=== PATIENT | male | born 1995 | race Caucasian/White ===

== ENCOUNTER 2017-12-25 15:29 | Emergency (ER) | payer SELFPAY ==
[2017-12-25 15:30] VITALS: BP 119/98; PULSE 125; RESP 16; TEMP 36.9; O2SAT 99; BMI 23.8
--- NOTE | 2017-12-25 15:46 | ED.VISSUMM ---
- ER Visit Summary Date of Service: 12/25/17 Chief Complaint: Dental pain left-sided jaw and facial swelling that started yesterday History of Present Illness: The patient is a 22 M who presents with left-sided facial pain and swelling that he localizes to the mandible. He denies fever, chills or night sweats. He denies history rheumatic fever, MVP, SBE, IV drug use or be an immune suppressed. He states he was told he has a murmur. He denies difficulty opening or closing his mouth completely. Denies malalignment of his teeth. He denies change in voice or difficulty swallowing or breathing. States he is nervous. Physical Examination: Vital signs are remarkable for a blood pressure 119/98 heart rate of 125. He is afebrile. There is swelling over the body of the mandible on the left side. He has dental caries involving the second left bicuspid first and second left lower molar with decay to the pulp. The first left lower molar has surrounding swelling of the gingiva. There is no fluctuance. There is no TMJ tenderness. There is no evidence of malocclusion or trismus. There is no cervical or some mandibular lymphadenopathy. Trachea is midline with no stridor. There is no evidence of Howard's angina. Heart is rapid and regular without murmur, gallop or rub lungs are clear to auscultation. Dermatologic exam is unremarkable evidence of cellulitis. Test Results: No tests were obtained nor were any indicated. Emergency Department Course and Treatment: Patient was treated with Pen-Vee K, Naprosyn and Vale. Treatment Plan: Prescription for pen VK, Naprosyn and Vale and referral to [facility] since he does not have in-state insurance. Disposition: Discharge to home Impression: 1. Periapical abscess left lower first molar 2. Dental caries left second bicuspid and left second molar with exposure of pulp This note was generated with [employer] dictation software. It may contain incorrect words, spelling, and punctuation that were not noted in review of the chart prior to signing ED Disposition - Plan for ED Patient: Disposition: Home or Assisted Living Chief Complaint: Dental Instructions: Dental Abscess, ED Cavity Dental Prescriptions: Hydrocodone Bitart/Apap 5-325 [[place] 5MG-325MG] 1 tab PO Q6H PRN PRN 3 Days #10 tab PRN Reason: Pain Naproxen [Naprosyn] 500 mg PO BID #10 tab Penicillin V Potassium 500 mg PO 4X/DAY #30 tab Referrals: Georgie Diaz MD [Primary Care Provider] - [facility] [NON-STAFF] - As soon as possible
--- NOTE | 2017-12-25 15:53 | ED.DCSUM_ITS ---
- ER Visit Summary Date of Service: 12/25/17 Chief Complaint: Dental pain left-sided jaw and facial swelling that started yesterday History of Present Illness: The patient is a 22 M who presents with left-sided facial pain and swelling that he localizes to the mandible. He denies fever, chills or night sweats. He denies history rheumatic fever, MVP, SBE, IV drug use or be an immune suppressed. He states he was told he has a murmur. He denies difficulty opening or closing his mouth completely. Denies malalignment of his teeth. He denies change in voice or difficulty swallowing or breathing. States he is nervous. Physical Examination: Vital signs are remarkable for a blood pressure 119/98 heart rate of 125. He is afebrile. There is swelling over the body of the mandible on the left side. He has dental caries involving the second left bicuspid first and second left lower molar with decay to the pulp. The first left lower molar has surrounding swelling of the gingiva. There is no fluctuance. There is no TMJ tenderness. There is no evidence of malocclusion or trismus. There is no cervical or some mandibular lymphadenopathy. Trachea is midline with no stridor. There is no evidence of Howard's angina. Heart is rapid and regular without murmur, gallop or rub lungs are clear to auscultation. Dermatologic exam is unremarkable evidence of cellulitis. Test Results: No tests were obtained nor were any indicated. Emergency Department Course and Treatment: Patient was treated with Pen-Vee K, Naprosyn and [place]. Treatment Plan: Prescription for pen VK, Naprosyn and [place] and referral to [facility] since he does not have in-state insurance. Disposition: Discharge to home Impression: 1. Periapical abscess left lower first molar 2. Dental caries left second bicuspid and left second molar with exposure of pulp This note was generated with [employer] dictation software. It may contain incorrect words, spelling, and punctuation that were not noted in review of the chart prior to signing ED Disposition - Plan for ED Patient: Disposition: Home or Assisted Living Chief Complaint: Dental Instructions: Dental Abscess, ED Cavity Dental Prescriptions: Hydrocodone Bitart/Apap 5-325 [[place] 5MG-325MG] 1 tab PO Q6H PRN PRN 3 Days #10 tab PRN Reason: Pain Naproxen [Naprosyn] 500 mg PO BID #10 tab Penicillin V Potassium 500 mg PO 4X/DAY #30 tab Referrals: Georgie Diaz MD [Primary Care Provider] - [facility] [NON-STAFF] - As soon as possible
[2017-12-25] MEDS: HYDROcodone Bitartrate/Apap 5/325 Tablet PO (15:54)
[2017-12-25] MEDS: Penicillin Vk 250 MG Tablet 500 MG PO (15:54)
[2017-12-25] MEDS: Naproxen 250 MG Tablet 500 MG PO (15:55)
== END 2017-12-25 16:07 | disposition home or self-care (01) ==
PROVIDERS: Emergency Provider Emergency Medicine; Family Provider Internal Medicine; PCP Internal Medicine
DX: K04.7 Periapical abscess without sinus (principal); K02.9 Dental caries, unspecified; Z72.0 Tobacco use
CPT/HCPCS: 99282